=== PATIENT | female | born 1990 | race Two or more races ===

== ENCOUNTER 2018-02-28 11:57 | Emergency (ER) | payer BC ==
[~2018-02-28] VITALS: Ht 152.4 cm; Wt 559.3 kg
[2018-02-28] MEDS ORDERED: SODIUM CHLORIDE 0.9% 500 ML IVB ONE (12:01)
[2018-02-28 13:55] LABS: Basophils # (auto) 0.1 uL; Basophils % (auto) 0.4 % (0.0-2.0); Eosinophils # (auto) 0.1 uL; Eosinophils % (auto) 0.9 % (0.0-7.0); Hematocrit 40.7 % (36.0-46.0); Hemoglobin 13.6 g/dL (12.2-16.2); Lymphocytes # (auto) 1.3 uL; Lymphocytes % (auto) 8.7 % (10.0-50.0); Mean Corpuscular Hemoglobin 29.8 pg (28.0-32.0); Mean Corpuscular Hgb Conc. 33.5 g/dL (32.0-36.0); Mean Corpuscular Volume 89.2 fL (80.0-100.0); Monocytes % (auto) 6.5 % (0.0-12.0); Neutrophils # (auto) 12.7 uL; Neutrophils % (auto) 83.5 % (37.0-80.0); Platelet Count (auto) 262 10^3/uL (140-450); Red Blood Cells 4.57 10^6/uL (4.0-5.20); Red Cell Distribution Width 13.2 % (11.8-14.3); White Blood Cell 15.2 10^3/uL (4.4-10.8)
[2018-02-28 14:17] LABS: Albumin 3.7 g/dL (3.4-5.0); BUN/Creatinine Ratio 10.8; Calcium 8.2 mg/dL (8.5-10.1); Potassium 3.9 mmol/L (3.5-5.1); Salicylate < 1.7 mg/dL (2.8-20.0)
[2018-02-28 14:19] LABS: Acetaminophen < 2.0 ug/mL (10-30)
[2018-02-28 14:20] LABS: Urine Pregnacy Test Negative (Negative)
[2018-02-28 14:20] LABS: Bilirubin, Total 0.2 mg/dL (0.2-1.0); Total Protein 7.8 g/dL (6.4-8.2)
[2018-02-28 14:36] LABS: Amphetamine Screen, Urine NEGATIVE (NEGATIVE); Barbiturate Scree,Urine NEGATIVE (NEGATIVE); Benzodiazephine Screen, Urine NEGATIVE (NEGATIVE); Cannabinoid Screen, Urine NEGATIVE (NEGATIVE); Cocaine Screen, Urine NEGATIVE (NEGATIVE); Opiate Scree,Urine NEGATIVE (NEGATIVE); Phencyclidine Screen, Urine NEGATIVE (NEGATIVE)
[2018-02-28 16:30] VITALS: BP 96/51
== END 2018-02-28 18:34 | disposition left against medical advice (07) ==
LOC: EDBD 11:57 → ER 11:57
DX: T43.212A Poisoning by selective serotonin and norepinephrine reuptake inhibitors, intentional self-harm, initial encounter (principal); R11.2 Nausea with vomiting, unspecified; F17.210 Nicotine dependence, cigarettes, uncomplicated; F31.9 Bipolar disorder, unspecified; Y92.9 Unspecified place or not applicable
CPT/HCPCS: 36415; 80053; 80307; 80320; 80329; 81025; 85025; 94761

== ENCOUNTER 2020-12-12 00:33 | Emergency (ER) | payer BC, MEDICAID ==
[~2020-12-12] VITALS: Ht 154.9 cm; Wt 72.6 kg
[2020-12-12] MEDS ORDERED: LORazepam 0.5 MG TAB PO ONE (05:00)
[2020-12-12 06:41] VITALS: BP 121/74
== END 2020-12-12 06:40 | disposition home or self-care (01) ==
LOC: ER 00:33
DX: F41.9 Anxiety disorder, unspecified (principal); E86.0 Dehydration; F32.9 Major depressive disorder, single episode, unspecified; F17.210 Nicotine dependence, cigarettes, uncomplicated
CPT/HCPCS: 71046; 81025

== ENCOUNTER 2024-04-11 00:18 | Emergency (ER) | payer BC, MEDICAID ==
[~2024-04-11] VITALS: Ht 152.4 cm; Wt 64.3 kg
[2024-04-11] MEDS: IPRATROPIUM BROM 0.5 MG/2.5ML INH SOL NEB ONE (01:40)
[2024-04-11] MEDS: ALBUTEROL SULF 2.5 MG/0.5ML(0.5%) NEB SOLN NEB ONE (01:40)
[2024-04-11] MEDS: DexAMETHasone SOD PHOS 10MG/1ML VIAL INJ IM ONE (02:05)
[2024-04-11] MEDS ORDERED: ALBU108A5 IN (02:40)
--- NOTE | 2024-04-11 02:40 | ED.PDOC ---
SOB-HPI Chief Complaint: Flu like Time Seen by MD: 00:29 Primary Care Provider: BEA Reviewed notes: Nurses Notes, Medications, Allergies Information Source: Patient Mode of Arrival: Ambulatory Past Medical History PAST MEDICAL HISTORY: Anxiety, Depression Surgical History: Denies all surgeries CLINICAL TRANSPLANT COORDINATOR History: No Pertinent CLINICAL TRANSPLANT COORDINATOR History Family History Family History: No family hx of Cancer Social History Smoker: Cigarettes, Other Alcohol: Occasionally Drugs: Denies Drug Use Lives In: Home X-Ray, Labs, Meds, VS Vital Signs Date Time Temp Pulse Resp B/P (MAP) Pulse Ox O2 Delivery O2 Flow Rate FiO2 04/11/24 01:41 20 95 Room Air* 0 21 04/11/24 00:29 98.5 70 20 113/61 (78) 98 Current Medications Medications (Trade) Dose Ordered Sig/Matilda Route Start Time Stop Time Status Last Admin Albuterol (Ventolin Medneb) 2.5 mg ONCE ONCE NEB 04/11/24 01:30 04/11/24 01:31 DC 04/11/24 01:40 Ipratropium [place] (Atrovent Medneb) 0.5 mg ONCE ONCE NEB 04/11/24 01:30 04/11/24 01:31 DC 04/11/24 01:40 Dexamethasone Sodium Phosphate (Decadron Injection) 10 mg ONCE ONCE IM 04/11/24 02:00 04/11/24 02:01 DC 04/11/24 02:05 Departure 1 Departure Time of Disposition: 02:38 Impression: Primary Impression: Bronchitis Disposition: 01 HOME / SELF CARE / HOMELESS Condition: Stable e-Prescriptions Albuterol Sulfate (Albuterol Sulfate Hfa) 108 Mcg/Act Aer 108 MCG IN 5XD for 30 Days, #1 INHALER Inhale 1-2 puffs every 4-6 hours as needed for wheezing or shortness of breath Prov: MATIAS CALIXTO 04/11/24 Critical Care Note Critical Care Time?: No Stability Stability form required: MATIAS Turner Apr 11, 2024 02:40
[2024-04-11] MEDS ORDERED: AZIT-43 PO (03:10)
[2024-04-11 03:21] VITALS: BP 106/59; PULSE 85; RESP 20; TEMP 98.5; O2SAT 97
== END 2024-04-11 03:21 | disposition home or self-care (01) ==
LOC: ER 00:18
DX: J40 Bronchitis, not specified as acute or chronic (principal); F17.210 Nicotine dependence, cigarettes, uncomplicated
CPT/HCPCS: 94640; 96372; 99283; J1100

== ENCOUNTER → 2024-11-07 | Outpatient (CLI) | payer BC ==
[2024-11-07 11:54] LABS: Hematocrit 43.1 % (36.0-46.0); Hemoglobin 14.9 g/dL (12.2-16.2); Mean Corpuscular Hemoglobin 30.5 pg (28.0-32.0); Mean Corpuscular Volume 88.4 fL (80.0-100.0); Nucleated Red Blood Cells % 0.2 %
[2024-11-07 12:10] LABS: Alanine Aminotransferase 14 U/L (7-40); Albumin 4.3 g/dL (3.2-4.8); Alkaline Phosphatase 53 U/L (46-116); Anion Gap 6 (5-15); BUN/Creatinine Ratio 8.8 (10.0-20.0); Calcium 8.9 mg/dL (8.7-10.4); Carbon Dioxide 25 mmol/L (20-31); Chloride 105 mmol/L (98-107); Glucose 89 mg/dL (74-106); Potassium 4.0 mmol/L (3.5-5.1); Total Protein 6.9 g/dL (5.7-8.2)
[2024-11-07 12:11] LABS: Bilirubin, Total 0.8 mg/dL (0.2-1.0)
[2024-11-07 12:12] LABS: Blood Urea Nitrogen 7 mg/dL (9-23); Sodium 136 mmol/L (136-145)
[2024-11-07 12:44] LABS: Beta HCG, Quantitative 0.4 mIU/mL (1.5-4.2)
[2024-11-07 12:46] LABS: Thyroid Stimulating Hormone 3.88 uIU/mL (0.55-4.78)
== END | disposition home or self-care (01) ==
LOC: LAB 11:15
DX: Z13.30 Encounter for screening examination for mental health and behavioral disorders, unspecified (principal)
CPT/HCPCS: 36415; 80053; 84443; 84702; 85025